=== PATIENT | female | born 2000 | race Two or more races ===

== ENCOUNTER 2022-05-11 08:44 | Emergency (ER) ==
[~2022-05-11] VITALS: Ht 167.6 cm; Wt 78.4 kg
== END 2022-05-11 09:02 | disposition left against medical advice (07) ==
LOC: M ED 08:44
DX: Z53.21 Procedure and treatment not carried out due to patient leaving prior to being seen by health care provider (principal)

== ENCOUNTER → 2022-07-14 | Outpatient (CLI) | payer OTHER | LOC: M WHC 11:26 | PROVIDERS: ATTEND Nurse Practitioner Women's Health | DX: Z36.89 Encounter for other specified antenatal screening (principal); Z3A.19 19 weeks gestation of pregnancy; O44.42 Low lying placenta NOS or without hemorrhage, second trimester ==

== ENCOUNTER 2022-07-29 14:03 | Outpatient (CLI) | payer OTHER ==
[~2022-07-29] VITALS: Ht 165.1 cm; Wt 76.6 kg
[2022-07-29 14:20] VITALS: BP 114/61
[2022-07-29] MEDS ORDERED: PRENTAB53 PO (14:20)
[2022-07-29] MEDS ORDERED: HOME MED LIST COMPLETE! XX SCH (14:25)
[2022-07-29 15:53] VITALS: BP 119/58
== END 2022-07-29 16:10 | disposition home or self-care (01) ==
LOC: M LDO 14:03
PROVIDERS: ATTEND Registered Nurse
DX: O23.592 Infection of other part of genital tract in pregnancy, second trimester (principal); Z3A.21 21 weeks gestation of pregnancy; O26.892 Other specified pregnancy related conditions, second trimester; R10.2 Pelvic and perineal pain

== ENCOUNTER 2022-08-31 10:19 | Outpatient (CLI) | payer OTHER ==
[~2022-08-31] VITALS: Ht 165.1 cm; Wt 81.2 kg
[~2022-08-31 10:19] MED LIST: PRENTAB53 PO
[2022-08-31] MEDS ORDERED: HOME MED LIST COMPLETE! XX SCH (10:30)
[2022-08-31 10:31] VITALS: BP 123/71
== END 2022-08-31 12:05 | disposition home or self-care (01) ==
LOC: M LDO 10:19
PROVIDERS: ATTEND Registered Nurse
DX: O36.8120 Decreased fetal movements, second trimester, not applicable or unspecified (principal); Z3A.26 26 weeks gestation of pregnancy; O26.892 Other specified pregnancy related conditions, second trimester; M54.9 Dorsalgia, unspecified
CPT/HCPCS: 59025; 76815; G0463

== ENCOUNTER 2022-10-21 06:11 | Outpatient (CLI) | payer OTHER ==
[~2022-10-21] VITALS: Ht 165.1 cm; Wt 84.5 kg
[2022-10-21 06:30] VITALS: BP 126/68
== END 2022-10-21 07:15 | disposition home or self-care (01) ==
LOC: M LDO 06:11
PROVIDERS: ATTEND Obstetrics & Gynecology
DX: O99.613 Diseases of the digestive system complicating pregnancy, third trimester (principal); K92.0 Hematemesis; Z3A.33 33 weeks gestation of pregnancy
CPT/HCPCS: 59025; G0463

== ENCOUNTER 2022-11-01 23:12 | Outpatient (CLI) | payer OTHER ==
[~2022-11-01] VITALS: Ht 165.1 cm; Wt 84.2 kg
[2022-11-01 23:34] VITALS: BP 132/76
[2022-11-02] MEDS ORDERED: LR 1,000 ML IV ONE
[2022-11-02] MEDS ORDERED: ONDANSETRON 4MG 2ML VIAL IV ONE
[2022-11-02] MEDS ORDERED: ACETAMINOPHEN 500 MG TAB PO PRN
[2022-11-02] MEDS ORDERED: LR 1,000 ML IV SCH
[2022-11-02 00:08] VITALS: BP 127/79
[2022-11-02 00:44] LABS: MEAN CORPUSCULAR HEMOGLOBIN 27.2 pg (27.0-33.0); MEAN CORPUSCULAR HGB CONC 33.3 g/dl (32.0-36.5); MEAN CORPUSCULAR VOLUME 81.5 fl (80.0-96.0); PLATELET COUNT, AUTOMATED 242 10^3/uL (150-450); RED BLOOD COUNT 3.68 10^6/uL (4.00-5.40); WHITE BLOOD COUNT 10.5 10^3/uL (4.0-10.0)
[2022-11-02 01:08] LABS: ALBUMIN 2.7 G/DL (3.2-5.2); ALKALINE PHOSPHATASE 211 U/L (46-116); ALT/SGPT 10 U/L (7.0-40); AST/SGOT 17 U/L (<34); BILIRUBIN,TOTAL 0.4 MG/DL (0.3-1.2); BLOOD UREA NITROGEN 5 MG/DL (9-23); CALCIUM LEVEL 9.2 MG/DL (8.5-10.1); CARBON DIOXIDE LEVEL 20 MMOL/L (20-31); CHLORIDE LEVEL 105 MMOL/L (98-107); GLUCOSE, FASTING 74 MG/DL (60-100); POTASSIUM SERUM 3.7 MMOL/L (3.5-5.1); SODIUM LEVEL 137 MMOL/L (136-145)
[2022-11-02 01:28] LABS: APPEARANCE, URINE CLEAR (CLEAR); BACTERIA, URINE AUTO NEGATIVE (NEGATIVE); BILIRUBIN, URINE AUTO NEGATIVE (NEGATIVE); BLOOD, URINE BLOOD NEGATIVE (NEGATIVE); COLOR, URINE YELLOW (YELLOW); GLUCOSE, URINE (UA) AUTO NEGATIVE (NEGATIVE); KETONE, URINE AUTO NEGATIVE (NEGATIVE); LEUKOCYTE ESTERASE, URINE AUTO 1+ (NEGATIVE); NITRITE, URINE AUTO NEGATIVE (NEGATIVE); PROTEIN, URINE AUTO NEGATIVE (NEGATIVE); RBC, URINE AUTO 1 /HPF (0-3); SPECIFIC GRAVITY URINE AUTO 1.005 (1.002-1.035); SQUAMOUS EPITHELIAL CELL UR AU 0 /HPF (0-6); UROBILINOGEN, URINE AUTO 0.2 mg/dL (0.0-2.0); WBC, URINE AUTO 1 /HPF (0-3)
[2022-11-02] MEDS ORDERED: CALCIUM CARBONATE 500 MG CHEW U/D PO ONE (01:45)
== END 2022-11-02 02:15 | disposition home or self-care (01) ==
LOC: M LDO 23:12
PROVIDERS: ATTEND Obstetrics & Gynecology
DX: O21.8 Other vomiting complicating pregnancy (principal); Z3A.35 35 weeks gestation of pregnancy
CPT/HCPCS: 59025; 80053; 81001; 85027; 96361; 96374; G0463; J2405

== ENCOUNTER 2023-07-26 20:51 | Emergency (ER) | payer OTHER ==
[~2023-07-26] VITALS: Ht 167.6 cm; Wt 78.9 kg
[2023-07-26] MEDS: ACETAMINOPHEN 325 MG TAB PO ONE (22:54)
[2023-07-26] MEDS: ONDANSETRON 4MG ORAL DISINTEGRATING TAB PO ONE (22:54)
[2023-07-26 23:10] LABS: BASO % 0.2 % (0.0-1.0); EOS % 0.2 % (0.0-3.0); HEMATOCRIT 32.7 % (36.0-47.0); LYMPH # 1.3 10^3/uL (1.5-5.0); LYMPH % 11.6 % (24.0-44.0); MEAN CORPUSCULAR HEMOGLOBIN 27.9 pg (27.0-33.0); MEAN CORPUSCULAR HGB CONC 33.6 g/dl (32.0-36.5); MONO # 1.1 10^3/uL (0.0-0.8); MONO % 9.8 % (2.0-8.0); NEUTROPHILS # 8.5 10^3/uL (1.5-8.5); NEUTROPHILS % 77.8 % (36.0-66.0); PLATELET COUNT, AUTOMATED 217 10^3/uL (150-450); RED BLOOD COUNT 3.94 10^6/uL (4.00-5.40); WHITE BLOOD COUNT 10.9 10^3/uL (4.0-10.0)
[2023-07-26] MEDS ORDERED: ONDA4TAB6 PO (23:36)
[2023-07-27] MEDS: NS 1,000 ML IV ONE (00:12)
[2023-07-27 01:15] VITALS: BP 101/59; TEMP 98.5; O2SAT 98
== END 2023-07-27 01:25 | disposition home or self-care (01) ==
LOC: M ED 20:51
DX: Z32.01 Encounter for pregnancy test, result positive (principal); O21.9 Vomiting of pregnancy, unspecified; O98.511 Other viral diseases complicating pregnancy, first trimester; Z79.83 Long term (current) use of bisphosphonates; Z3A.01 Less than 8 weeks gestation of pregnancy

== ENCOUNTER 2023-07-30 20:29 | Emergency (ER) | payer OTHER ==
[~2023-07-30] VITALS: Ht 167.6 cm; Wt 76.9 kg
[~2023-07-30 20:29] MED LIST changes: +ONDA4TAB6 PO
[2023-07-30 20:34] VITALS: BP 116/61; TEMP 99; O2SAT 100
== END 2023-07-30 22:10 | disposition left against medical advice (07) ==
LOC: M ED 20:29
DX: Z53.21 Procedure and treatment not carried out due to patient leaving prior to being seen by health care provider (principal)